=== PATIENT | female | born 1995 | race Caucasian/White ===

== ENCOUNTER 2021-10-20 08:00 | Inpatient (IN) | payer OTHER ==
[2021-10-20] MEDS ORDERED: ELECTROLYTE-148 SOLN 1,000 ML IV SCH (10:15)
[2021-10-20 10:32] VITALS: BMI 28.7
[2021-10-20] MEDS ORDERED: NALOXONE HCL 0.4 MG/ML VIAL IVPUSH PRN (11:15)
[2021-10-20] MEDS ORDERED: FENTANYL/BUPIVACAINE/NS/PF - PCEA - 50 ML DISP.SYRIN EP ONE ×2 (11:21→16:13)
[2021-10-20] MEDS: FENTANYL/BUPIVACAINE/NS/PF - PCEA - 50 ML DISP.SYRIN EP SCH ×2 (11:35→16:15)
[2021-10-20] MEDS ORDERED: OXYTOCIN 30 UNITS in 0.9% NS 30 UNIT/500 ML INFUS.BAG IVPB SCH (12:15)
[2021-10-20] MEDS ORDERED: OXYTOCIN 30 UNITS in 0.9% NS 30 UNIT/500 ML INFUS.BAG IVPB ONE (12:49)
[2021-10-20] MEDS ORDERED: CITRIC ACID/SODIUM CITRATE 30 ML UNIT-DOSE CUP PO ONE (19:11)
[2021-10-20 19:20] LABS: RETICULOCYTES 1.46 % (0.5-1.5)
[2021-10-20] MEDS ORDERED: LIDOCAINE HCL/EPINEPHRINE/PF 20 ML VIAL ONE (19:35)
[2021-10-20] MEDS ORDERED: PHENYLEPHRINE HCL 10 MG/1 ML SINGLE DOSE VIAL ONE (19:38)
[2021-10-20 19:42] LABS: URIC ACID 5.9 mg/dL (2.6-7.2)
[2021-10-20] MEDS ORDERED: MIDAZOLAM HCL 2 MG/2 ML SINGLE DOSE VIAL ONE (20:28)
[2021-10-20] MEDS ORDERED: OXYTOCIN 10 UNITS/ML VIAL ONE ×4 (20:48→20:52)
[2021-10-20] MEDS ORDERED: ceFAZolin SODIUM 1 GM VIAL ONE ×2 (20:48)
[2021-10-20] MEDS ORDERED: BENZOCAINE 20% 57 GM BOTTLE TP PRN (20:59)
[2021-10-20] MEDS ORDERED: IBUPROFEN 800 MG/8 ML IJ IVPB PRN (20:59)
[2021-10-20] MEDS ORDERED: METHYLERGONOVINE MALEATE 0.2 MG/1 ML AMP IM PRN (20:59)
[2021-10-20] MEDS ORDERED: ACETAMINOPHEN 325 MG TABLET (FP) PO PRN (20:59)
[2021-10-20] MEDS ORDERED: SENNOSIDES/DOCUSATE COMBO (SENNA PLUS) TABLET (UD) PO PRN (20:59)
[2021-10-20] MEDS ORDERED: OXYTOCIN 20 UNITS in 0.9% NS 20 UNIT/1,000 ML INFUS.BAG IV SCH (21:00)
[2021-10-20 21:32] LABS: CORD BASE EXCESS -2.5 mmol/L (0-2); CORD HCO3 24.1 mmHg (20-29); CORD PCO2 48.2 mmHg (30-78); CORD pH 7.317 (7.14-7.44)
[2021-10-20 21:44] LABS: CORD BASE EXCESS -4.8 mmol/L (0-2); CORD PCO2 41.3 mmHg (30-78); CORD pH 7.324 (7.14-7.44)
[2021-10-20] MEDS ORDERED: IBUPROFEN 800 MG/8 ML IJ IVPB ONE (22:26)
[2021-10-21] MEDS ORDERED: DEXTROSE 5%-WATER - 50 ML IVPB ONE ×3 (02:54→16:50)
[2021-10-21] MEDS ORDERED: ceFAZolin SODIUM 1 GM VIAL ONE ×3 (02:54→16:50)
[2021-10-21] MEDS: CEFAZOLIN 1 GM in DEXTROSE 5%-WATER - 1 GM/50 ML IVPB IVPB SCH ×3 (02:57→17:00)
[2021-10-21 08:15] LABS: BASO % 0.3 % (0-2.0); EOS % 0.3 % (0-4.5); HEMATOCRIT 34.4 % (32.4-45.2); HEMOGLOBIN 11.5 GM/dL (10.7-15.3); LYMPH % 14.7 % (8-40); MCH 33.8 pg (25.7-33.7); MCHC 33.5 g/dl (32.0-36.0); MEAN CELL VOLUME 101.1 fl (80-96); MONO % 7.1 % (3.8-10.2); NEUT % 77.6 % (42.8-82.8); PLATELET COUNT 170 10^3/uL (134-434); RDW 13.9 % (11.6-15.6); WHITE BLOOD COUNT 9.4 K/mm3 (4.0-10.0)
[2021-10-21] MEDS ORDERED: oxyCODONE HCL 5 MG TABLET PO PRN ×2 (08:59)
[2021-10-21] MEDS: PRENATAL VITAMINS W/ FOLIC ACID TABLET (FP) PO SCH (09:21)
[2021-10-21] MEDS: SIMETHICONE 80 MG TAB.CHEW (FP) PO PRN (16:55)
[2021-10-21] MEDS: FENTANYL/BUPIVACAINE/NS/PF - PCEA - 50 ML DISP.SYRIN EP SCH (19:33)
[2021-10-21] MEDS ORDERED: BISACODYL 10 MG SUPP.RECT RC PRN (20:59)
[2021-10-22] MEDS: SIMETHICONE 80 MG TAB.CHEW (FP) PO PRN ×2 (08:46→22:13)
[2021-10-22] MEDS: IBUPROFEN 600 MG TABLET (FP) PO PRN ×2 (08:47→22:13)
[2021-10-22] MEDS: PRENATAL VITAMINS W/ FOLIC ACID TABLET (FP) PO SCH (09:33)
[2021-10-23 08:30] LABS: BASO % 0.3 % (0-2.0); EOS % 2.3 % (0-4.5); HEMOGLOBIN 12.1 GM/dL (10.7-15.3); LYMPH % 22.1 % (8-40); MCH 33.3 pg (25.7-33.7); MCHC 32.8 g/dl (32.0-36.0); MEAN CELL VOLUME 101.6 fl (80-96); MEAN PLT VOLUME 7.6 fl (7.5-11.1); MONO % 5.7 % (3.8-10.2); NEUT % 69.6 % (42.8-82.8); PLATELET COUNT 210 10^3/uL (134-434); RBC 3.65 M/mm3 (3.60-5.2); RDW 14.7 % (11.6-15.6)
[2021-10-23] MEDS: IBUPROFEN 600 MG TABLET (FP) PO PRN (08:34)
[2021-10-23] MEDS: PRENATAL VITAMINS W/ FOLIC ACID TABLET (FP) PO SCH (09:17)
[2021-10-23 09:44] VITALS: BP 129/78; PULSE 75; TEMP 98.1
== END 2021-10-23 18:40 | disposition home or self-care (01) | DRG 788 ==
LOC: JDEL 08:00 → JLDR 09:45 → J3W 23:09
PROVIDERS: ADMIT Obstetrics & Gynecology; ATTEND Obstetrics & Gynecology
PROC: 10D00Z1 Extraction of Products of Conception, Low, Open Approach (ICD-10-PCS; principal; 2021-10-20)
DX: O32.4XX0 Maternal care for high head at term, not applicable or unspecified (principal); O62.0 Primary inadequate contractions; O77.0 Labor and delivery complicated by meconium in amniotic fluid; Z3A.40 40 weeks gestation of pregnancy; Z37.0 Single live birth
CPT/HCPCS: 36415; 36600; 82803; 82977; 83010; 84450; 84460; 84550; 85025; 85032; 85045; 88307-TC

== ENCOUNTER 2023-10-27 05:00 | Inpatient (IN) | payer OTHER ==
[2023-10-27 05:39] VITALS: BMI 27.6
[2023-10-27] MEDS: ELECTROLYTE-148 SOLN 500 ML IV ONE (06:15)
[2023-10-27 06:34] LABS: BASO % 0.4 % (0-2.0); EOS % 2.4 % (0-4.5); HEMATOCRIT 38.9 % (32.4-45.2); HEMOGLOBIN 13.3 GM/dL (10.7-15.3); LYMPH % 28.1 % (8-40); MCH 34.7 pg (25.7-33.7); MCHC 34.2 g/dl (32.0-36.0); MEAN CELL VOLUME 101.3 fl (80-96); MEAN PLT VOLUME 7.4 fl (7.5-11.1); MONO % 7.8 % (3.8-10.2); NEUT % 61.3 % (42.8-82.8); PLATELET COUNT 174 10^3/uL (134-434); RBC 3.84 M/mm3 (3.60-5.2); RDW 12.9 % (11.6-15.6); WHITE BLOOD COUNT 7.5 K/mm3 (4.0-10.0)
[2023-10-27 06:43] LABS: INR 0.98 (0.83-1.09); PROTHROMBIN TIME (PATIENT) 11.4 SEC (9.7-13.0)
[2023-10-27 06:45] LABS: ACTIVATED PTT 26.4 SECONDS (25.2-36.5)
[2023-10-27 06:52] LABS: POTASSIUM 3.7 mmol/L (3.5-5.1)
[2023-10-27 06:54] LABS: ALBUMIN 2.8 g/dl (3.4-5.0); BLOOD UREA NITROGEN 8.4 mg/dL (7-18); CALCIUM 8.9 mg/dL (8.5-10.1)
[2023-10-27 06:57] LABS: CREATININE 0.5 mg/dL (0.55-1.3)
[2023-10-27 06:59] LABS: BILIRUBIN,TOTAL 0.6 mg/dL (0.2-1); TOT PROT 6.5 g/dl (6.4-8.2)
[2023-10-27] MEDS: ELECTROLYTE-148 SOLN 1,000 ML IV SCH (07:00)
[2023-10-27] MEDS: CITRIC ACID/SODIUM CITRATE 30 ML UNIT-DOSE CUP PO ONE (07:55)
[2023-10-27] MEDS ORDERED: KETOROLAC TROMETHAMINE 30 MG/1 ML VIAL ONE (08:02)
[2023-10-27] MEDS ORDERED: FENTANYL CITRATE/PF 50 MCG/ML VIAL ONE (08:02)
[2023-10-27] MEDS ORDERED: OXYTOCIN 10 UNITS/ML VIAL ONE (08:02)
[2023-10-27] MEDS ORDERED: ceFAZolin SODIUM 1 GM VIAL ONE (08:02)
[2023-10-27] MEDS ORDERED: ONDANSETRON 4 MG/2 ML VIAL ONE (08:02)
[2023-10-27] MEDS ORDERED: morphine SULFATE/PF 1 MG/2 ML (2cc Syringe - QUVA) ONE (08:02)
[2023-10-27] MEDS ORDERED: PHENYLEPHRINE HCL 10 MG/1 ML SINGLE DOSE VIAL ONE (08:02)
[2023-10-27] MEDS: OXYTOCIN 20 UNITS in 0.9% NS 20 UNIT/1,000 ML INFUS.BAG IV SCH (08:36)
[2023-10-27 09:38] LABS: CORD BASE EXCESS -2.2 mmol/L (0-2); CORD HCO3 25.2 mmHg (20-29); CORD PCO2 53.3 mmHg (30-78); CORD pH 7.292 (7.14-7.44)
[2023-10-27] MEDS ORDERED: ONDANSETRON 4 MG/2 ML VIAL IVPB PRN (09:39)
[2023-10-27 09:40] LABS: CORD HCO3 26.3 mmHg (20-29); CORD PCO2 60.7 mmHg (30-78); CORD pH 7.255 (7.14-7.44)
[2023-10-27] MEDS: IBUPROFEN 800 MG/8 ML IJ IVPB SCH (09:45)
[2023-10-27] MEDS: CEFAZOLIN 2 GM in DEXTROSE 5%-WATER - 50 ML IVPB SCH (10:00)
[2023-10-27 11:32] VITALS: RESP 18
[2023-10-27] MEDS ORDERED: CEFAZOLIN 2 GM in DEXTROSE 5%-WATER - 50 ML IVPB SCH (18:13)
[2023-10-27] MEDS ORDERED: CEFAZOLIN SODIUM 2 GM in DEXTROSE 5%-WATER 100 ML IVPB SCH (19:00)
[2023-10-27 21:46] LABS: SYPHILIS W/ RPR CONF NON-REACTIVE (NONREACTIVE)
[2023-10-27 21:48] LABS: HEPATITIS B SURFACE AG MATERN NON-REACTIVE (NONREACTIVE)
[2023-10-27] MEDS: SENNOSIDES/DOCUSATE COMBO (SENNA PLUS) TABLET (UD) PO SCH (22:00)
[2023-10-27 22:15] LABS: HIV INTERPRETATION NEGATIVE (NEGATIVE)
[2023-10-28] MEDS: CEFAZOLIN SODIUM 2 GM in DEXTROSE 5%-WATER 100 ML IVPB SCH (02:05)
[2023-10-28 08:09] LABS: BASO % 0.4 % (0-2.0); EOS % 1.5 % (0-4.5); HEMATOCRIT 37.9 % (32.4-45.2); HEMOGLOBIN 12.9 GM/dL (10.7-15.3); LYMPH % 16.8 % (8-40); MCH 34.7 pg (25.7-33.7); MCHC 34.2 g/dl (32.0-36.0); MEAN CELL VOLUME 101.4 fl (80-96); MEAN PLT VOLUME 7.4 fl (7.5-11.1); MONO % 6.3 % (3.8-10.2); PLATELET COUNT 159 10^3/uL (134-434); RBC 3.73 M/mm3 (3.60-5.2); RDW 13.4 % (11.6-15.6); WHITE BLOOD COUNT 8.9 K/mm3 (4.0-10.0)
[2023-10-28] MEDS: ACETAMINOPHEN 1000 MG/100 ML BAG IVPB PRN (08:21)
[2023-10-28] MEDS: ENOXAPARIN NA (PORCINE) 40 MG/0.4 ML DISP.SYRIN SQ SCH (09:35)
[2023-10-28] MEDS: IBUPROFEN 600 MG TABLET (FP) PO SCH (09:36)
[2023-10-28] MEDS ORDERED: BISACODYL 10 MG SUPP.RECT RC PRN (09:39)
[2023-10-28] MEDS ORDERED: oxyCODONE HCL 5 MG TABLET PO PRN (11:00)
[2023-10-28] MEDS ORDERED: ACETAMINOPHEN 325 MG TABLET (FP) PO PRN (12:01)
[2023-10-28] MEDS ORDERED: CEFAZOLIN 2 GM in DEXTROSE 5%-WATER - 50 ML IVPB SCH (18:45)
[2023-10-28] MEDS: IBUPROFEN 600 MG TABLET (FP) PO PRN (19:31)
[2023-10-28] MEDS: SIMETHICONE 80 MG TAB.CHEW (FP) PO PRN (19:32)
[2023-10-29 09:29] VITALS: TEMP 98.3
[2023-10-30 09:54] VITALS: BP 114/70; PULSE 89
== END 2023-10-30 12:28 | disposition home or self-care (01) | DRG 788 ==
LOC: JLDR 05:00 → J3W 11:35
PROVIDERS: ADMIT Obstetrics & Gynecology; ATTEND Obstetrics & Gynecology
PROC: 10D00Z1 Extraction of Products of Conception, Low, Open Approach (ICD-10-PCS; principal; 2023-10-27)
DX: O34.219 Maternal care for unspecified type scar from previous cesarean delivery (principal); Z3A.39 39 weeks gestation of pregnancy; Z37.0 Single live birth
CPT/HCPCS: 36415; 36600; 80053; 82803; 85025; 85610; 85730; 86780; 86850; 86900; 86901; 87340; 87389; 88307-TC; J0131